=== PATIENT | female | born 1955 | race Caucasian/White ===

== ENCOUNTER 2017-03-18 12:41 | Emergency (ER) | payer MEDICAID ==
[2017-03-18 12:57] VITALS: BP 138/72; TEMP 98.2; O2SAT 96
[2017-03-18] MEDS ORDERED: Albuterol-Ipratrop 3 mg / 0.5 (3 ml) UD INH STA ×3 (13:14→14:13)
--- NOTE | 2017-03-18 13:30 | ED PDOC ---
HPI: CCC, URI, Sore Throat Time Seen by Provider: 03/18/17 12:58 Chief Complaint (Nursing): Cough, Cold, Congestion Chief Complaint (Provider): cough History Per: Patient History/Exam Limitations: no limitations Have you had recent travel within the past 21 days to any of the following countries: [place], [place], [place] or [place]?: No Additional Complaint(s): 61yo F in ED for eval of cough-dry with wheezing and pleturtic chest pain since last night-admit to hx of asthma, states she does smoke daily>2cig/day. denies feer chills malaise rhinorrhea or palpitations. Past Medical History Reviewed: Historical Data, Nursing Documentation, Vital Signs Vital Signs: Last Vital Signs Temp 98.2 F 03/18/17 12:54 Pulse 86 03/18/17 12:54 Resp 16 03/18/17 12:54 BP 138/72 03/18/17 12:54 Pulse Ox 96 03/18/17 14:13 - Medical History PMH: Asthma - Family History Family History: States: No Known Family Hx - Home Medications Home Medications: Ambulatory Orders Medication Instructions Recorded Dextromethorphan Polistirex 30 mg PO BID #100 nadia.er.12h 03/18/17 [Delsym] predniSONE [predniSONE Tab] 20 mg PO BID #8 tab 03/18/17 - Allergies Allergies/Adverse Reactions: Allergies Allergy/AdvReac Type Severity Reaction Status Date / Time No Known Allergies Allergy Verified 03/18/17 12:58 Curb-65 Severity Score - CURB-65 Severity Score Confusion: No Bun >19mg/dl (>7mmol/L): No Respiratory Rate greater than/equal to 30: No Systolic BP <90 or Diastolic BP less than/equal 60mmHg: No Age >64: No Curb-65 Score: 0 Percentage 30-day mortality: 0.6% Review of Systems ROS Statement: Except As Marked, All Systems Reviewed And Found Negative Constitutional: Negative for: Fever, Chills Respiratory: Positive for: Cough. Negative for: Shortness of Breath, Sputum Gastrointestinal: Negative for: Nausea, Vomiting, Abdominal Pain Physical Exam - Reviewed Nursing Documentation Reviewed: Yes Vital Signs Reviewed: Yes - Physical Exam Appears: Positive for: Well, Non-toxic, No Acute Distress Skin: Positive for: Normal Color, Warm, DRY Eye Exam: Positive for: Normal appearance ENT: Positive for: Normal ENT Inspection Cardiovascular/Chest: Positive for: Regular Rate, Rhythm Respiratory: Positive for: CNT, Normal Breath Sounds Neurologic/Psych: Positive for: Alert, Oriented - ECG O2 Sat by Pulse Oximetry: 96 - Radiology X-Ray: Interpreted by Me (increased lung markings) - Progress ED Course And Treament: impression: PNA vs URI vs asthma exacerbation Orders Category Date Time Status CHEST TWO VIEWS (PA/LAT) [RAD] Stat Exams 03/18/17 13:14 Ordered Albuterol/Ipratropium [Duoneb 3 mg/0.5 mg (3 ml) UD] Med 03/18/17 13:14 Stat 3 ml INH [id number] STA PEAK FLOW PRE/POST TX .PRE/POST TREATMENT Resp 03/18/17 13:14 Ordered Nebulizer Treatments/Peak Flow - Duonebs Number of Bronchodilator Doses given?: 3 - Steroid Treatment Steroid: Oral Medical Decision Making Medical Decision Making: pt improved with nebulizer and prednisone-pt will be d.c with sterpids and z- pack for upper resp. infection. stable VS and well appearing. Vital Signs - 24 hr 03/18/17 03/18/17 12:54 14:13 Temperature 98.2 F Pulse Rate 86 Respiratory 16 Rate Blood Pressure 138/72 O2 Sat by Pulse 96 96 Oximetry Disposition - Clinical Impression Clinical Impression: Cough - Patient ED Disposition Is Patient to be Admitted: No Counseled Patient/Family Regarding: Studies Performed, Diagnosis, Need For Followup, Rx Given - Disposition Disposition: Routine/Home Disposition Time: 15:05 Condition: IMPROVED Prescriptions: Dextromethorphan Polistirex [Delsym] 30 mg PO BID #100 nadia.er.12h predniSONE [predniSONE Tab] 20 mg PO BID #8 tab Instructions: Upper Respiratory Infection (ED) Forms: [employer] ([place])
[2017-03-18] MEDS ORDERED: Albuterol-Ipratrop 3 mg / 0.5 (3 ml) UD ONE ×2 (13:32→14:32)
--- NOTE | 2017-03-18 14:46 | RAD ---
HISTORY: cough COMPARISON: 11/15/2016 TECHNIQUE: Chest PA and lateral FINDINGS: LUNGS: There is some minor left apical pleural and right apical pleural change. No new infiltrate is seen. Lungs are otherwise clear. PLEURA: No significant pleural effusion identified. No pneumothorax apparent. CARDIOVASCULAR: Aorta is normal in size. Heart is not enlarged. OSSEOUS STRUCTURES: No significant abnormalities. VISUALIZED UPPER ABDOMEN: Normal. OTHER FINDINGS: None. IMPRESSION: No active disease. No interval change.
[2017-03-18 15:23] VITALS: PULSE 81; RESP 19
== END 2017-03-18 15:23 | disposition home or self-care (01) ==
LOC: H.ER 12:41
DX: R06.2 Wheezing (principal); J45.909 Unspecified asthma, uncomplicated